=== PATIENT | male | born 2000 | race American Indian/Alaskan Native ===

== ENCOUNTER 2020-10-08 08:09 | Emergency (ER) | payer SELFPAY ==
[2020-10-08] MEDS ORDERED: FAMOTIDINE 20 MG TAB PO ONE (08:44)
[2020-10-08] MEDS ORDERED: dexAMETHasone 20 MG/5 ML VIAL IM ONE (08:44)
--- NOTE | 2020-10-08 08:48 | Emergency Department Report ---
- General Chief complaint: Skin Rash Stated complaint: RASH Time Seen by Provider: 10/08/20 08:44 Source: patient Mode of arrival: Ambulatory Limitations: No Limitations - History of Present Illness Initial comments: 20-year-old -[place] male presents to the emergency room reporting that he has been suffering from hives for couple of weeks. Patient states that really only happens at night. Patient denies any shortness of breath no difficulty swallowing no chest pain no nausea no vomiting. Patient denies any new foods does admit to new cologne. Patient admits that he smokes marijuana daily. Denies any cigarette. Drinks alcohol occasionally. No past medical history currently takes no medications on a daily basis and has no known drug allergies. MD complaint: rash Onset/Timin -: week(s) Tetanus Up to Date: yes Location: generalized Severity: moderate Quality: other (Itches) Consistency: intermittent Worsens with: none Context: none Associated symptoms: denies other symptoms Treatments Prior to Arrival: Benadryl (50 mg) - Related Data Previous Rx's Medication Instructions Recorded Last Taken Type Cetirizine HCl [Zyrtec 10mg tab] 10 mg PO QDAY #20 tablet 10/08/20 Unknown Rx EPINEPHrine [Epipen 2-Rodolfo] 0.3 mg IJ ONCE PRN #2 auto.injct 10/08/20 Unknown Rx Famotidine [Pepcid] 40 mg PO QHS #20 tablet 10/08/20 Unknown Rx Prednisone [predniSONE 5 mg (6-Day 5 mg PO .TAPER #1 tab.ds.pk 10/08/20 Unknown Rx Pack, 21 Tabs)] Allergies Allergy/AdvReac Type Severity Reaction Status Date / Time No Known Allergies Allergy Verified 10/08/20 08:09 Abscess Boil HPI - HPI Chief Complaint: Skin Rash Stated Complaint: RASH Time Seen by Provider: 10/08/20 08:44 Home Medications: Previous Rx's Medication Instructions Recorded Last Taken Type Cetirizine HCl [Zyrtec 10mg tab] 10 mg PO QDAY #20 tablet 10/08/20 Unknown Rx EPINEPHrine [Epipen 2-Rodolfo] 0.3 mg IJ ONCE PRN #2 auto.injct 10/08/20 Unknown Rx Famotidine [Pepcid] 40 mg PO QHS #20 tablet 10/08/20 Unknown Rx Prednisone [predniSONE 5 mg (6-Day 5 mg PO .TAPER #1 tab.ds.pk 10/08/20 Unknown Rx Pack, 21 Tabs)] Allergies/Adverse Reactions: Allergies Allergy/AdvReac Type Severity Reaction Status Date / Time No Known Allergies Allergy Verified 10/08/20 08:09 ED Review of Systems ROS: Stated complaint: RASH Other details as noted in HPI Comment: All other systems reviewed and negative ED Past Medical Hx - Past Medical History Previous Medical History?: No - Surgical History Past Surgical History?: No - Social History Smoking Status: Current Every Day Smoker Substance Use Type: Alcohol, Marijuana - Medications Home Medications: Home Medications Medication Instructions Recorded Confirmed Last Taken Type Cetirizine HCl [Zyrtec 10mg tab] 10 mg PO QDAY #20 tablet 10/08/20 Unknown Rx EPINEPHrine [Epipen 2-Rodolfo] 0.3 mg IJ ONCE PRN #2 auto.injct 10/08/20 Unknown Rx Famotidine [Pepcid] 40 mg PO QHS #20 tablet 10/08/20 Unknown Rx Prednisone [predniSONE 5 mg (6-Day 5 mg PO .TAPER #1 tab.ds.pk 10/08/20 Unknown Rx Pack, 21 Tabs)] ED Physical Exam - General Limitations: No Limitations General appearance: alert, in no apparent distress - Head Head exam: Present: atraumatic, normocephalic - Eye Eye exam: Present: normal appearance - ENT ENT exam: Present: mucous membranes moist - Neck Neck exam: Present: normal inspection, full ROM. Absent: tenderness - Respiratory Respiratory exam: Present: normal lung sounds bilaterally. Absent: respiratory distress, wheezes, accessory muscle use - Cardiovascular Cardiovascular Exam: Present: regular rate - GI/Abdominal GI/Abdominal exam: Present: soft. Absent: distended, tenderness - Extremities Exam Extremities exam: Present: normal inspection, full ROM - Back Exam Back exam: Present: rash noted (Urticaria) - Neurological Exam Neurological exam: Present: alert, oriented X3, normal gait - Psychiatric Psychiatric exam: Present: normal affect, normal mood - Skin Skin exam: Present: urticaria (Back stomach legs upper arms chest) ED Course Vital Signs 10/08/20 08:09 Temperature 97.9 F Pulse Rate 64 Respiratory 18 Rate Blood Pressure 134/71 O2 Sat by Pulse 98 Oximetry ED Medical Decision Making - Medical Decision Making 20-year-old -[place] male presents to the emergency room reporting that he has been suffering from hives for couple of weeks. Patient states that really only happens at night. Patient denies any shortness of breath no difficu lty swallowing no chest pain no nausea no vomiting. Patient denies any new foods does admit to [facility]. Patient admits that he smokes marijuana daily. Denies any cigarette. Drinks alcohol occasionally. No past medical history currently takes no medications on a daily basis and has no known drug allergies. Patient had taken Benadryl 50 mg just prior to arrival. Patient will be given dexamethasone 10 mg IM and Pepcid 40 mg p.o. Critical care attestation.: If time is entered above; I have spent that time in minutes in the direct care of this critically ill patient, excluding procedure time. ED Disposition Clinical Impression: Urticaria Disposition: TO HOME OR SELFCARE Is pt being admited?: No Does the pt Need Aspirin: No Condition: Stable Instructions: Hives, [id number], How to Use an Auto-Injector Pen Additional Instructions: Complete medication as prescribed. Increase your fluid intake. Follow-up with your primary care provider I have listed 1 below for your convenience. Prescriptions: Famotidine [Pepcid] 40 mg PO QHS #20 tablet EPINEPHrine [Epipen 2-Rodolfo] 0.3 mg IJ ONCE PRN #2 auto.injct PRN Reason: Anaphylaxis Prednisone [predniSONE 5 mg (6-Day Pack, 21 Tabs)] 5 mg PO .TAPER #1 tab.ds.pk Cetirizine HCl [Zyrtec 10mg tab] 10 mg PO QDAY #20 tablet Referrals: JENNIFER ANDINO MD [Staff Physician] - 3-5 Days Forms: Work/School Release Form(ED) Time of Disposition: 08:52
[2020-10-08 09:15] VITALS: BP 130/79
== END 2020-10-08 09:16 | disposition home or self-care (01) ==
LOC: ED 08:09
DX: L50.9 Urticaria, unspecified (principal); F17.200 Nicotine dependence, unspecified, uncomplicated; F12.10 Cannabis abuse, uncomplicated; Z79.899 Other long term (current) drug therapy
CPT/HCPCS: 96372; 99282; J1100